=== PATIENT | male | born 1945 | race Caucasian/White ===

== ENCOUNTER 2018-11-21 15:12 | Observation (INO) | payer MEDICARE, OTHER, SELFPAY ==
[2018-11-16 07:56] VITALS: BMI 33.1
[2018-11-20] VITALS (7 sets, daily range): BP systolic 95–138; BP diastolic 50–81; PULSE 74–87; RESP 10–20; TEMP 36.7–37.2; O2SAT 3–96; BMI 33.1
[2018-11-20] MEDS: LACTATED RINGERS 1,000 ML 42 ML IV ×2 (12:29→17:16)
[2018-11-20] MEDS: ACETAMINOPHEN 325 MG TABLET 975 MG PO ×2 (12:31→19:58)
[2018-11-20] MEDS: MELOXICAM 7.5 MG TABLET 15 MG PO (12:32)
[2018-11-20] MEDS: PREGABALIN 75 MG CAPSULE PO (12:32)
--- NOTE | 2018-11-20 13:15 | PM.PREOP ---
Pre-operative Note Interval Note History & Physical reviewed/Exam performed by Physician: Yes Changes to H&P: No
--- NOTE | 2018-11-20 13:15 | PM.OP.1 ---
Operative Date/Time/Diagnoses Date of procedure: 11/20/18 Time of procedure: 17:40 Pre-op diagnosis: Left knee osteoarthritis Post-op diagnosis: same Procedure & Clinicians Procedure: Left total knee replacement Same procedure as scheduled: Yes Indications: The patient has had progressively worsening left knee pain with radiographic changes consistent with arthritis. Non-operative management has failed and the patient has requested total knee replacement. The risks, benefits and alternatives to surgery were discussed with the patient prior to proceeding. Risks discussed included, but were not limited to, failure to relieve pain, stiffness, infection, nerve damage, deep venous thrombosis, pulmonary embolism, stroke, coma, heart attack, permanent paralysis and , as well as the potential need for eventual revision of the prosthetic. Surgeon: David Mistry [employer]astics Tooling Engineer: Janneth Scott Click Yes if Unassisted: No Anesthesia Type: General, Spinal and Local Operative Notes Findings: Moderate osteoarthritis in all 3 compartments with no grade 4 changes. Closure Type: primary Specimen(s): none sent Prosthetic devices, grafts, tissues, transplants, or devices: Implants used in this procedure were manufactured by the [employer] and [employer] and included the BCS II Journey total knee replacement with a size 8 Oxinium femoral component, a size 7 non porous tibial base plate, a 9 mm cross-linked polyethylene tibial insert, and a 35 mm oval Anupama II patellar component. Applied: implant(s) Estimated Blood Loss (mL): 50 Blood products transfused: none Tourniquet time (min): 53 Procedure in detail: The patient was seen in the pre-operative area, where the left knee was identified as the operative site and this was marked with my initials. The patient received pre-operative antibiotics, and was taken to the operating room and placed on the operative table in the supine position. After satisfactory anesthesia, a time study technologist out? was performed. The left leg was encircled with a tourniquet about the proximal thigh, and the leg was prepared from the toes to the tourniquet with ChloroPrep in the usual fashion and draped through sterile drapes. The leg was elevated and exsanguinated with Eschmark bandage and the tourniquet inflated to 250 mmHg pressure. The knee was approached through an approximately 18 cm incision centered over the patella and carried into the knee through a medial parapatellar arthrotomy. The anterior osteophytes and soft tissues were removed. The rotational landmarks of [place]'s line and the transepicondylar axis were marked on the femur with electrocautery, and intramedullary guide holes for the femur and tibia were created. The distal femoral cut was made in 6 degrees of valgus using the intramedullary guide at the primary cut setting. The proximal tibial cut was then made using the intramedullary guide, taking 9 mm of bone off the less involved side. The extension gap was checked and the rotation of the femoral component confirmed with the gap balancing blocks. The anterior, posterior and chamfer cuts were then made. The posterior osteophytes and soft tissues were then removed. The posterior capsule was injected with part of a mixture of 60 ml 0.25% Marcaine mixed with 20 ml Exparel and 4 mg of morphine for post-operative pain control. The remainder of this mixture was injected into the capsule and subcutaneous tissues during cement curing. The tibia was prepared with the rotation set by an extra medullary guide. Trial tibial and femoral components were then placed and the intercondylar notch cut through the femoral trial. Range of motion was 0-140 degrees, with good stability throughout the range. The patella was then cut to accommodate the patellar prosthetic. There was no need for a lateral release. The trials were then removed, and the femoral hole plugged with a bone plug. The bone was prepared with pulsatile lavage, and dried with a sponge. Cement was applied and the final prosthetics placed. Excess cement was removed during and after cement curing. After confirming there was no extruded cement posteriorly, the final tibial insert was placed. The knee was copiously irrigated and the tourniquet deflated. Hemostasis was obtained. The capsule was closed with interrupted # 2 polyester sutures. The subcutaneous layer was closed with 3-0 Vicryl, and the skin with a running 3-0 V-Lock suture and SteriStrips. An Aquacel Ag dressing was applied and the patient was taken to recovery having tolerated the procedure well. Complications: none Condition: stable Disposition: PACU Plan for aftercare: The patient will be maintained on a standard total knee replacement protocol with weight bearing as tolerated. The patient will receive aspirin and sequential compression devices for DVT prophylaxis. The patient will be discharged home when safe for the home environment.
--- NOTE | 2018-11-20 14:00 | DI.RAD.S_ITS ---
PROCEDURE: XR KNEE LT 1TO2V INDICATIONS: prosthesis placement TECHNIQUE: 2 view(s) of the knee acquired. COMPARISON: None. FINDINGS: Bones: Patient is status post left total knee joint arthroplasty. Hardware components are in expected positions. Visualized bony structures are intact. Soft tissues: Overlying postoperative changes are noted. IMPRESSION: Status post left total knee arthroplasty in anatomic alignment with expected postoperative soft tissue changes. Dictated by: Morris Toledo M.D. on 11/21/2018 at 10:52 Approved by: Morris Toledo M.D. on 11/21/2018 at 10:53
[2018-11-20] MEDS: CEFAZOLIN 2 GM/100 ML FROZ.PIGGY IV (16:11)
[2018-11-20] MEDS: TRANEXAMIC ACID 1,000 MG VIAL 1000 MG INJ (16:35)
--- NOTE | 2018-11-20 16:51 | SUR.OPER ---
Supine on padded OR bed. Pillow under head, arms secured on padded armboards <90 degree abduction. Safety belt across torso. Non-operative leg secured with tape over blanket over lower leg. Operative leg secured in DeMayo positioner.
[2018-11-20] MEDS: BUPIVACAINE 0.25% W/ EPI VIAL 60 ML INJ (16:58)
[2018-11-20] MEDS: BUPIVACAINE LIPOSOME 266 MG/20 ML VIAL INJ (16:59)
[2018-11-20] MEDS: MORPHINE 4 MG/ML INJ INJ (16:59)
[2018-11-20] MEDS: LACTATED RINGERS 1,000 ML 125 ML IV (19:51)
[2018-11-20] MEDS: OXYCODONE IR 5 MG TABLET PO (19:51)
[2018-11-20] MEDS: DOCUSATE 100 MG CAPSULE PO (19:59)
--- NOTE | 2018-11-20 22:08 | PC.NURSE ---
Ngoc shift note: Patient arrived to AC from PACU, awake, alert, and cooperative. Tolerating PO intake. Aquacel and Acewrap to Left knee, elevated with ice pack in place. IVF initiated. Kacy at bedside providing supportive care. RT to set up Cpap as per home care routine. Oriented to room, environment and plan of care.
[2018-11-20] MEDS: ONDANSETRON 4 MG/2 ML INJ IV (22:34)
[2018-11-21 00:15] VITALS: BP 124/67; PULSE 77; RESP 19; TEMP 36.9; O2SAT 95
[2018-11-21] MEDS: CEFAZOLIN 2 GM/100 ML FROZ.PIGGY IV ×2 (00:16→07:31)
[2018-11-21] MEDS: OXYCODONE IR 5 MG TABLET PO ×3 (00:20→21:32)
--- NOTE | 2018-11-21 01:51 | PC.NURSE ---
Addendum entered by Melisa Hurtado R.N. 11/21/18 06:21: Requesting additional pain medication for 6/10 left knee pain; too early for additional Oxycodone so reviewed pain med options and requested/medicated early with scheduled Tylenol. Original Note: Addendum entered by Melisa Hurtado R.N. 11/21/18 05:22: Medicated at 0413 for 4/10 left knee pain and states pain is better at 1/10 at rest and 4/10 with movement. Declined offer of anything additional for pain at this time. Original Note: Addendum entered by Melisa Hurtado R.N. 11/21/18 01:54: 0102 Patient voided 750cc dark wood urine via urinal. Original Note: 0027 Patient seen and assessed. Is alert and oriented. Breath sounds diminished but CTA. Wearing home CPAP and sat is 96% HRR. Denies nausea. BT present and abdomen is soft; passing flatus. Has not voided since return from surgery so discussed procedure should he not be able to void; verbalizes understanding. Is able to move himself in bed. Complains of left hip pain so medicated with Oxycodone. David dressing to left knee is CDI. CMS is intact and able to raise leg couple inches off bed. Has not yet been out of bed since surgery. Wearing calf SCD's. Reports fall in past 3 month so fall risk score is high and bed alarm is activated. rooming in.
[2018-11-21 04:12] VITALS: BP 100/58; PULSE 78; RESP 18; TEMP 36.9; O2SAT 96
[2018-11-21] MEDS: ACETAMINOPHEN 325 MG TABLET 975 MG PO ×3 (06:18→21:26)
--- NOTE | 2018-11-21 07:38 | P.DS_ITS ---
History of Present Illness Date Patient Seen: 11/21/18 Time Patient Seen: 07:36 Chief complaint: Left Total Knee Arthroplasty 15010 Narrative: The history of present illness and physical examination is contained in the chart previously completed note. Please refer to that note for this inf ormation. Discharge Providers Date of admission: 11/20/18 11:27 Consults: 11/20/18 18:58 Consult to Discharge Planning Routine Comment: Consult to Physical Therapy Evaluate & Treat Comment: Physician Instructions: postop TKA protocol Discharge provider: David Mistry MD Discharge Date: 11/21/18 Summary Discharge Diagnosis: 1. Left knee osteoarthritis 2. Mild acute post hemorrhagic anemia Hospital Course: The patient was admitted the hospital and taken directly to the operating room on November 20, 2018. He underwent a left total knee replacement without complications. At the time of this dictation the plan is for him to be discharged home provided he passes physical therapy today. Status at Discharge Cognitive/behavioral status at discharge: Baseline Functional status at discharge: uses cane/walker Overall status at discharge: patient is progressing back to baseline Time Spent with Patient Less than 30 minutes Exam Vital Signs (past 8 hours): - 11/21/18 00:15 11/21/18 04:12 Temperature 98.4 F 98.4 F Pulse Rate 77 78 Respiratory Rate 19 18 Blood Pressure 124/67 100/58 L Pulse Oximetry 95 96 Oxygen Delivery Method CPAP Narrative Exam Narrative: Left knee wound is dressed with minimal drainage on the bandage. The knee is mildly swollen. Calf is soft. Light touch and motion are intact in the left lower extremity. Objective Labs Result Diagrams: 11/21/18 06:05 Labs: Laboratory Results - last 24 hr 11/21/18 06:05 Hgb 13.0 L Hct 39.0 L Discharge Plan Discharge Plan Patient Disposition: Home Discharge Med Rec/Prescriptions Prescriptions: New ibuprofen 600 mg Tablet 600 mg PO Q6HR PRN (Reason: As Needed For Fever/Mild Pain) Qty: 60 RF: 0 oxycodone 5 mg Tablet 5 mg PO Q3HR PRN (Reason: Pain, Moderate (4-6)) Qty: 60 RF: 0 Continued aspirin 325 mg Tablet 325 mg PO DAILY RF: 0 Follow up/Referrals: David Mistry MD [Physician] - 3-5 Days Provider Discharge Instructions Diet: Diet as Tolerated and Regular Activity: You may weight bear as tolerated on her left leg. Cold/Heat Therapy: Apply ice to the left knee for 15 min of every hour as needed. Skin/Wound/Dressing Care Report to your healthcare provider any signs of infection, such as:: chills, fever, night sweats, increased pain, unusual drainage and unusual redness Dressing: Keep the compressive David wrap in place for 3 days after surgery. You may then remove the David wrap and shower normally with the deeper dressing in place. If the center strip of the deeper dressing gets saturated with either water or blood please call the office to have it changed. Visit Report/Discharge Packet Instructions: DI for Knee Replacement Stand Alone Forms: Surgery Discharge Discharge Data Attending Provider: David Mistry Admit Date/Time: 11/20/18 11:27 Quality VTE Deep Vein Thrombosis/Pulmonary Embolism Present on Admission: No
[2018-11-21 08:24] VITALS: BP 113/65; PULSE 76; RESP 16; TEMP 36.9; O2SAT 96
[2018-11-21] MEDS: IBUPROFEN 600 MG TABLET PO (08:43)
[2018-11-21] MEDS: SODIUM CHLORIDE 0.9% FLUSH 10 ML IV ×2 (08:44→21:27)
[2018-11-21] MEDS: POLYETHYLENE GLYCOL 3350 17 GM POWD.PACK PO (08:44)
[2018-11-21] MEDS: DOCUSATE 100 MG CAPSULE PO ×2 (08:44→21:26)
[2018-11-21] MEDS: ASPIRIN 325 MG TABLET PO (08:44)
[2018-11-21] MEDS: OXYCODONE IR 10 MG TABLET PO ×2 (08:48→12:58)
--- NOTE | 2018-11-21 09:30 | PT.IIE ---
Current Diagnoses Unilateral primary osteoarthritis, left knee (11/20/18) Surgery Performed Operation Date: 11/20/18 14:00 Actual Procedures p Total Knee Arthroplasty(Left) - David Mistry MD Surgical History (Last Updated 11/16/18 @ 10:10 by Julianne Brush, RN) History of lumbar spinal fusion (Acute) History of vasectomy (Acute) Hx of arthroscopy of right knee (Acute) Hx of laminectomy (Acute 12/02/17) Hx of tonsillectomy (Acute) Hx of umbilical hernia repair (Acute) S/P epidural steroid injection (Acute) Status post cataract extraction of both eyes with insertion of intraocular lens (Acute) Medical History (Last Updated 11/16/18 @ 10:10 by Julianne Brush, JULIANNA) Afib (Acute ~2010) Arthritis (Acute) Easy bruisability (Acute) Neuropathy (Acute) NIKKO on CPAP (Acute) Throat cancer (Acute ~08/2014) Physical Therapy Inpatient Evaluation/Re-Eval M1 PT/OT-IP Prior Functional Status Start: 11/21/18 11:38 Freq: NEEDED Status: Active Protocol: Document 11/21/18 11:39 [facility] (Rec: 11/21/18 11:43 [facility] [id number]) Medical Review Prior Functional Status Medical History Reviewed Yes Diet/Fluid Consistency Regular Communication WNL Mobility and Gait Pt amb without AD. Pt is retired. Indep with ADLs Social History Household Members spouse Living Arrangements House Number of Floors (Floors) One Floor Number of Stairs To Enter/Railing? 1 GUME Home Environment Standard Height Toilet Tub/Shower Home Equipment Front Wheel Walker Straight Cane Employment Status Retired Additional Social History Comment is looking into tub transfer bench after edu M2 PT-IP Current Condition Start: 11/21/18 11:38 Freq: NEEDED Status: Active Protocol: Document 11/21/18 11:39 [facility] (Rec: 11/21/18 11:43 [facility] [id number]) Physical Therapy Current Condition Current Condition Evaluation Date 11/21/18 Treatment Diagnosis L TKA Onset Date 11/20/18 Weight Bearing Status Weight Bearing Status Weight Bear as Tolerated M3 PT-IP Subjective Start: 11/21/18 11:38 Freq: NEEDED Status: Active Protocol: Document 11/21/18 11:39 [facility] (Rec: 11/21/18 11:43 [facility] [email or web address]) Subjective Physical Therapy Visit Type Type Initial Evaluation Visit Start Time 08:45 Visit Stop Time 09:30 Total Visit Minutes 45 Number of FARM MANAGEMENT ADVISER Visits 0 Physical Therapy Visit Comments Patient Comments Pt plans to go home later today w/ Therapy Pain Assessment Pain When Pain Assessed During Mobility Pain Present Pain Present Pain Reported M4 PT-IP Mobility and Gait Start: 11/21/18 11:38 Freq: NEEDED Status: Active Protocol: Document 11/21/18 11:39 [facility] (Rec: 11/21/18 11:43 [facility] [id number]) PT-Bed Mobility Assessment Supine to Sit Supine to Sit Standby Assistance Sit to Supine Sit to Supine Standby Assistance Scooting Scooting to Edge of Bed Standby Assistance Scooting Up and Down in Bed Standby Assistance PT-Transfer Assessment Sit to and From Stand Sit to and from Stand Contact Guard Assistance Use of Upper Extremities Equipment Transfer Assistive Device Gait Belt Front Wheeled Walker Orthotic/Prosthetic Devices or Brace: No Comments Mobility Comments Pt stood to pull up pants but reports inc lightheaded feeling after standing. BP 104 /54 and pt sat to drink water. BP 65/45 so returned to supien and BP inc to 97/60 then to 117/66. RN informed PT-Balance Assessment Sitting Balance and Reactions Static Sitting Balance Ability Normal Dynamic Sitting Balance Ability Normal Standing Balance and Reactions Static Standing Balance Ability Poor Dynamic Standing Balance Ability Poor M5 PT-IP Objective Assessments Start: 11/21/18 11:38 Freq: NEEDED Status: Active Protocol: Document 11/21/18 11:39 [facility] (Rec: 11/21/18 11:43 [facility] [id number]) Orientation Orientation/Cognition Level of Alertness Alert Gross Range of Motion Lower Extremity ROM Assessment Left Impaired Impairments about 95 deg L flex Strength Lower Extremity Strength Assessment Left Impaired M6 PT-IP Treatment Start: 11/21/18 11:38 Freq: NEEDED Status: Active Protocol: Document 11/21/18 11:39 [facility] (Rec: 11/21/18 11:43 [facility] [id number]) Physical Therapy Treatment Education Education Provided Precautions Weight Bearing Status Post-Op Packet Safety Other Treatments Other Treatment Performed edu on possible need for tub transfer bench. edu on getting in/out of car M7 PT-IP Assessment and Plan Start: 11/21/18 11:38 Freq: NEEDED Status: Active Protocol: Document 11/21/18 11:39 [facility] (Rec: 11/21/18 11:43 [facility] [id number]) PT Summary Assessment and Plan Potential Rehabilitation Potential Excellent Status of Condition at Evaluation Unstable Summary Impairments Pain ROM Strength Balance Transfers Gait Assessment Summary Pt was limited this AM d/t dec BP with sitting up and standing. He is very motivated to progress and agreeable to work with therapy. Goals Bed Mobility Goal Independent Transfer Goal Independent Gait Goal Standby Assistance Gait Distance 150ft Other Goals up/down 1 step SBA w/FWW Days to Meet Goals 2 Frequency of Treatment Frequency Of Treatment Twice a Day Treatment Plan Physical Therapy Treatment Plan Bed Mobility Training Transfer Training Gait Training Therapeutic Exercise Balance Retraining Hot or Cold Pack Neuromuscular Re-ed Recommendations To Nursing Amount of Assist Needed 1 Person Assist Discharge Recommendations PT Discharge Recommendations Home with Assistance Outpatient PT
--- NOTE | 2018-11-21 11:39 | CM.DANOTE ---
DCP: Case received, EMR reviewed and met with patient. Introduced self and role. DCP template completed with information currently available. Patient is a 73 year old male who admitted yesterday morning to the care of the surgical team. PCP: Hari Lorenz. Payer: confirmed: Medicare/[employer]. Patient came to hospital for Left Total Knee Arthroplasty. Patient has history of left knee osteoarthritis. Met briefly with patient, spouse in room as well. Patient is independent at home. Him and his Charmaine, live on [address]. He has also been driving prior to surgery. P: Patient should be discharging home today with outpatient physical therapy. Rebecca Dyer RN/Spar Finisher
--- NOTE | 2018-11-21 12:30 | PC.NURSE ---
Day shift: Pt tolerating knee pain with oral meds per DEC. Pt hypotensive and light headed when OOB and ambulating. He worked w/ PT on the stairs and became dizzy and incoherent. Safely returned to bed. Called Dr Mistry and gave report of the accounts so far. Order to d/c the discharge today. Did not want IV bolus and said to encourage oral fluids. Will continue to monitor.
--- NOTE | 2018-11-21 14:19 | PT.IPTN ---
Current Diagnoses Unilateral primary osteoarthritis, left knee (11/20/18) Surgery Performed Operation Date: 11/20/18 14:00 Actual Procedures p Total Knee Arthroplasty(Left) - David Mistry MD Physical Therapy Treatment Note M2 PT-IP Current Condition Start: 11/21/18 11:38 Freq: NEEDED Status: Active Protocol: Document 11/21/18 11:39 [facility] (Rec: 11/21/18 11:43 [facility] [id number]) Physical Therapy Current Condition Current Condition Evaluation Date 11/21/18 Treatment Diagnosis L TKA Onset Date 11/20/18 Weight Bearing Status Weight Bearing Status Weight Bear as Tolerated M3 PT-IP Subjective Start: 11/21/18 11:38 Freq: NEEDED Status: Active Protocol: Document 11/21/18 14:13 [facility] (Rec: 11/21/18 14:19 [facility] [id number]) Subjective Physical Therapy Visit Type Type Treatment Note Visit Start Time 11:55 Visit Stop Time 12:33 Total Visit Minutes 38 Number of CUFF TURNER MACHINE OPERATOR Visits 0 Physical Therapy Visit Comments Patient Comments Pt excited to try mobilizing to be able to possibly go home tomorrow. Therapy Pain Assessment Pain When Pain Assessed During Mobility Pain Present Pain Present Pain Reported M4 PT-IP Mobility and Gait Start: 11/21/18 11:38 Freq: NEEDED Status: Active Protocol: Document 11/21/18 14:13 [facility] (Rec: 11/21/18 14:19 [facility] [id number]) PT-Bed Mobility Assessment Supine to Sit Supine to Sit Standby Assistance Sit to Supine Sit to Supine Minimal Assistance Scooting Scooting Up and Down in Bed Standby Assistance PT-Transfer Assessment Sit to and From Stand Sit to and from Stand Standby Assistance Use of Upper Extremities Equipment Transfer Assistive Device Gait Belt Orthotic/Prosthetic Devices or Brace: No Transfers Transfer Destination Bed Transfer Technique Stand Step Pivot Transfer Ability Level of Assist Moderate Assistance Comments Mobility Comments Pt stood from bed SBA and was able to amb to stairs and go up/down a step with good mechanics and no c/o of lightheadedness. After completing the step, pt c/o feeling lightheaded and was assisted into w/c and required assistance to transfer back to bed. Supine BP 114/58; seated 107/62, standing 106/62 no c/o of dizziness; supine after amb 104/63 and improved to 115/70 after about 2 min in bed Gait Assessment Gait Gait Assistance Required: Standby Assistance Distance (Feet) 120 Able to Maintain Weight Bearing Status Yes During Gait Assistive Devices Assistive Device Gait Belt Front Wheeled Walker Orthotic/Prosthetic Devices or Brace: No Gait Deviations General Gait Pattern Antalgic Decreased Stride Length Factors Limiting Gait Function Factors Limiting Gait Function Decreased Strength Limited Range of Motion Pain Comments Gait Comments Pt able to ambulate iwth step through pattern, but very small steps. Stair Climbing Assessment Evaluation Level of Assist On Stairs Contact Guard Assistance Devices Stair Climbing Assistive Devices Front Wheel Walker Technique/Endurance Stair Climbing Direction Ascend and Descend Stair Climbing Technique Step to Step Number of Steps Climbed 1 Query Text: M5 PT-IP Objective Assessments Start: 11/21/18 11:38 Freq: NEEDED Status: Active Protocol: Document 11/21/18 11:39 [facility] (Rec: 11/21/18 11:43 [facility] [id number]) Orientation Orientation/Cognition Level of Alertness Alert Gross Range of Motion Lower Extremity ROM Assessment Left Impaired Impairments about 95 deg L flex Strength Lower Extremity Strength Assessment Left Impaired M6 PT-IP Treatment Start: 11/21/18 11:38 Freq: NEEDED Status: Active Protocol: Document 11/21/18 11:39 [facility] (Rec: 11/21/18 11:43 [facility] [id number]) Physical Therapy Treatment Education Education Provided Precautions Weight Bearing Status Post-Op Packet Safety Other Treatments Other Treatment Performed edu on possible need for tub transfer bench. edu on getting in/out of car M7 PT-IP Assessment and Plan Start: 11/21/18 11:38 Freq: NEEDED Status: Active Protocol: Document 11/21/18 14:13 [facility] (Rec: 11/21/18 14:19 [facility] [id number]) PT Summary Assessment and Plan Summary Progress Towards Goals Progressing Toward Goals Assessment Summary Pt able to tolerate amb and was able ot go up/down a step with cueing and stabilizing the FWW but felt dizzy after activity. At this time, pt needs to get more medically stable before returning home. Goals Bed Mobility Goal Independent Transfer Goal Independent Gait Goal Standby Assistance Gait Distance 150ft Other Goals up/down 1 step SBA w/FWW Days to Meet Goals 2 Frequency of Treatment Frequency Of Treatment Twice a Day Treatment Plan Physical Therapy Treatment Plan Bed Mobility Training Transfer Training Gait Training Therapeutic Exercise Balance Retraining Hot or Cold Pack Neuromuscular Re-ed Other Recommendations and Next Treatment orthostatics, gait & stair Focus Recommendations To Nursing Amount of Assist Needed 1 Person Assist Discharge Recommendations PT Discharge Recommendations Home with Assistance Outpatient PT Equipment Needed for Home Before is ordering tub transfer Discharge bench and plans to pear picker FWW from [employer] as she found out his walker was a 4ww
[2018-11-21 17:08] VITALS: BP 119/69; PULSE 71; RESP 18; TEMP 36.7; O2SAT 96
[2018-11-21 19:43] VITALS: BP 139/70; PULSE 76; RESP 19; TEMP 36.7; O2SAT 95
[2018-11-22 01:00] VITALS: BP 119/61; PULSE 74; RESP 18; TEMP 37; O2SAT 94
[2018-11-22] MEDS: OXYCODONE IR 5 MG TABLET PO ×2 (01:02→02:19)
[2018-11-22] MEDS: IBUPROFEN 600 MG TABLET PO (02:18)
[2018-11-22 05:18] VITALS: BP 130/69; PULSE 74; RESP 17; TEMP 36.8; O2SAT 94
--- NOTE | 2018-11-22 05:49 | PC.NURSE ---
CENTRIFUGE SEPARATOR OPERATOR: Assumed care of this patient at 0300 this shift. Patient sleeping appearing comfortable most of shift. 0515 patient awake asking for coffee. Reports pain tolerable at this time and declines pain medications. No acute distress, patient looking forward to discharging home today.
[2018-11-22] MEDS: OXYCODONE IR 10 MG TABLET PO (06:51)
--- NOTE | 2018-11-22 07:06 | PM.DS.1 ---
History of Present Illness Chief complaint: Left Total Knee Arthroplasty [id number] Narrative: The history of present illness and physical examination is contained in the chart previously completed note. Please refer to that note for this information. Discharge Providers Date of admission: 11/20/18 11:27 Consults: 11/20/18 18:58 Consult to Discharge Planning Routine Comment: Consult to Physical Therapy Evaluate & Treat Comment: Physician Instructions: postop TKA protocol Discharge provider: David Mistry MD Discharge Date: 11/22/18 Summary Discharge Diagnosis: 1. Left knee osteoarthritis 2. Mild acute post hemorrhagic anemia Hospital Course: The patient was admitted to the hospital and taken directly to the operating room on November 20, 2018. He underwent a left total knee replacement which he tolerated well. He made excellent progress with physical therapy however had an episode of orthostatic hypotension with stair climbing on postoperative day 1 and his discharge was canceled. At the time of this dictation on postoperative day 2 it is anticipated he will be ready to go home. Status at Discharge Cognitive/behavioral status at discharge: Baseline Functional status at discharge: uses cane/walker Overall status at discharge: patient is progressing back to baseline Time Spent with Patient Less than 30 minutes Exam Vital Signs (past 8 hours): - 11/22/18 01:00 11/22/18 05:18 Temperature 98.6 F 98.2 F Pulse Rate 74 74 Respiratory Rate 18 17 Blood Pressure 119/61 130/69 Pulse Oximetry 94 94 Oxygen Delivery Method Room Air Oxygen Flow Rate 0 Objective Labs Result Diagrams: 11/21/18 06:05 Discharge Plan Discharge Plan Patient Disposition: Home Discharge Med Rec/Prescriptions Prescriptions: New ibuprofen 600 mg Tablet 600 mg PO Q6HR PRN (Reason: As Needed For Fever/Mild Pain) Qty: 60 RF: 0 oxycodone 5 mg Tablet 5 mg PO Q3HR PRN (Reason: Pain, Moderate (4-6)) Qty: 60 RF: 0 Continued aspirin 325 mg Tablet 325 mg PO DAILY RF: 0 Follow up/Referrals: David Mistry MD [Physician] - 3-5 Days Provider Discharge Instructions Diet: Diet as Tolerated and Regular Activity: You may weight bear as tolerated on her left leg. Cold/Heat Therapy: Apply ice to the left knee for 15 min of every hour as needed. Skin/Wound/Dressing Care Report to your healthcare provider any signs of infection, such as:: chills, fever, night sweats, increased pain, unusual drainage and unusual redness Dressing: Keep the compressive David wrap in place for 3 days after surgery. You may then remove the David wrap and shower normally with the deeper dressing in place. If the center strip of the deeper dressing gets saturated with either water or blood please call the office to have it changed. Visit Report/Discharge Packet Instructions: DI for Knee Replacement Stand Alone Forms: Surgery Discharge Discharge Data Attending Provider: David Mistry Admit Date/Time: 11/20/18 11:27 Quality VTE Deep Vein Thrombosis/Pulmonary Embolism Present on Admission: No
--- NOTE | 2018-11-22 07:09 | P.DS_ITS ---
History of Present Illness Chief complaint: Left Total Knee Arthroplasty [id number] Narrative: The history of present illness and physical examination is contained in the chart previously completed note. Please refer to that note for this info rmation. Discharge Providers Date of admission: 11/20/18 11:27 Consults: 11/20/18 18:58 Consult to Discharge Planning Routine Comment: Consult to Physical Therapy Evaluate & Treat Comment: Physician Instructions: postop TKA protocol Discharge provider: David Mistry MD Discharge Date: 11/22/18 Summary Discharge Diagnosis: 1. Left knee osteoarthritis 2. Mild acute post hemorrhagic anemia Hospital Course: The patient was admitted to the hospital and taken directly to the operating room on November 20, 2018. He underwent a left total knee replace ment which he tolerated well. He made excellent progress with physical therapy however had an episode of orthostatic hypotension with stair climbing on postoperative day 1 and his discharge was canceled. At the time of this dictation on postoperative day 2 it is anticipated he will be ready to go home. Status at Discharge Cognitive/behavioral status at discharge: Baseline Functional status at discharge: uses cane/walker Overall status at discharge: patient is progressing back to baseline Time Spent with Patient Less than 30 minutes Exam Vital Signs (past 8 hours): - 11/22/18 01:00 11/22/18 05:18 Temperature 98.6 F 98.2 F Pulse Rate 74 74 Respiratory Rate 18 17 Blood Pressure 119/61 130/69 Pulse Oximetry 94 94 Oxygen Delivery Method Room Air Oxygen Flow Rate 0 Objective Labs Result Diagrams: 11/21/18 06:05 Discharge Plan Discharge Plan Patient Disposition: Home Discharge Med Rec/Prescriptions Prescriptions: New ibuprofen 600 mg Tablet 600 mg PO Q6HR PRN (Reason: As Needed For Fever/Mild Pain) Qty: 60 RF: 0 oxycodone 5 mg Tablet 5 mg PO Q3HR PRN (Reason: Pain, Moderate (4-6)) Qty: 60 RF: 0 Continued aspirin 325 mg Tablet 325 mg PO DAILY RF: 0 Follow up/Referrals: David Mistry MD [Physician] - 3-5 Days Provider Discharge Instructions Diet: Diet as Tolerated and Regular Activity: You may weight bear as tolerated on her left leg. Cold/Heat Therapy: Apply ice to the left knee for 15 min of every hour as needed. Skin/Wound/Dressing Care Report to your healthcare provider any signs of infection, such as:: chills, fever, night sweats, increased pain, unusual drainage and unusual redness Dressing: Keep the compressive David wrap in place for 3 days after surgery. You may then remove the David wrap and shower normally with the deeper dressing in place. If the center strip of the deeper dressing gets saturated with either water or blood please call the office to have it changed. Visit Report/Discharge Packet Instructions: DI for Knee Replacement Stand Alone Forms: Surgery Discharge Discharge Data Attending Provider: David Mistry Admit Date/Time: 11/20/18 11:27 Quality VTE Deep Vein Thrombosis/Pulmonary Embolism Present on Admission: No
[2018-11-22 08:06] VITALS: BP 140/77; PULSE 75; RESP 18; TEMP 36.7
[2018-11-22] MEDS: ACETAMINOPHEN 325 MG TABLET 975 MG PO (08:40)
[2018-11-22] MEDS: ASPIRIN 325 MG TABLET PO (08:41)
[2018-11-22] MEDS: DOCUSATE 100 MG CAPSULE PO (08:41)
--- NOTE | 2018-11-22 11:49 | PT.IPTN ---
Current Diagnoses Unilateral primary osteoarthritis, left knee (11/20/18) Surgery Performed Operation Date: 11/20/18 14:00 Actual Procedures p Total Knee Arthroplasty(Left) - David Mistry MD Physical Therapy Treatment Note M2 PT-IP Current Condition Start: 11/21/18 11:38 Freq: NEEDED Status: Active Protocol: Document 11/21/18 11:39 [facility] (Rec: 11/21/18 11:43 [email or web address] [id number]) Physical Therapy Current Condition Current Condition Evaluation Date 11/21/18 Treatment Diagnosis L TKA Onset Date 11/20/18 Weight Bearing Status Weight Bearing Status Weight Bear as Tolerated M3 PT-IP Subjective Start: 11/21/18 11:38 Freq: NEEDED Status: Active Protocol: Document 11/22/18 11:41 SA (Rec: 11/22/18 11:49 SA [id number]) Subjective Physical Therapy Visit Type Type Treatment Note Visit Start Time 09:24 Visit Stop Time 09:48 Total Visit Minutes 24 Number of STONE SANDBLASTER Visits 1 Physical Therapy Visit Comments Patient Comments Pt ready to walk this AM. Patient Goals To get home with . Therapy Pain Assessment Pain When Pain Assessed During Mobility Pain Present Pain Present Pain Reported Location Left Knee Intensity 3 Scale Used Numeric (1 - 10) Pain Management Techniques Apply Cold Modification of Treatment Re-positioning Timing of Activity with Medications M4 PT-IP Mobility and Gait Start: 11/21/18 11:38 Freq: NEEDED Status: Active Protocol: Document 11/22/18 11:41 SA (Rec: 11/22/18 11:49 SA [id number]) PT-Bed Mobility Assessment Rolling Type of Rolling Roll to Right Level of Assist Standby Assistance Supine to Sit Supine to Sit Standby Assistance Sit to Supine Sit to Supine Contact Guard Assistance Scooting Scooting to Edge of Bed Standby Assistance Scooting Up and Down in Bed Standby Assistance PT-Transfer Assessment Sit to and From Stand Sit to and from Stand Standby Assistance Use of Upper Extremities Equipment Transfer Assistive Device Gait Belt Front Wheeled Walker Orthotic/Prosthetic Devices or Brace: No Transfers Transfer Destination Bed Transfer Technique Stand Step Pivot Transfer Ability Level of Assist Standby Assistance Comments Mobility Comments Pt denied dizziness with mobility, SBA with stand pivot txs. Able to clear LLE over EOB with SUpine<>Sit. Gait Assessment Gait Gait Assistance Required: Standby Assistance Distance (Feet) 150 Able to Maintain Weight Bearing Status Yes During Gait Assistive Devices Assistive Device Gait Belt Front Wheeled Walker Gait Deviations General Gait Pattern Antalgic Decreased Stride Length Factors Limiting Gait Function Factors Limiting Gait Function Decreased Strength Limited Range of Motion Pain Comments Gait Comments Pt with improving WBing on LLE and step through gait, min cues for upright posture. Stair Climbing Assessment Evaluation Level of Assist On Stairs Contact Guard Assistance Devices Stair Climbing Assistive Devices Right Railing Technique/Endurance Stair Climbing Direction Ascend and Descend Stair Climbing Technique Step to Step Number of Steps Climbed 3 Query Text: Stair Climbing Set # Repetitions (reps) 1 Comments Stair Climbing Comments Step to gait pattern on steps and CGA, min cues for safe technique. M5 PT-IP Objective Assessments Start: 11/21/18 11:38 Freq: NEEDED Status: Active Protocol: Document 11/21/18 11:39 LR (Rec: 11/21/18 11:43 [facility] [id number]) Orientation Orientation/Cognition Level of Alertness Alert Gross Range of Motion Lower Extremity ROM Assessment Left Impaired Impairments about 95 deg L flex Strength Lower Extremity Strength Assessment Left Impaired M6 PT-IP Treatment Start: 11/21/18 11:38 Freq: NEEDED Status: Active Protocol: Document 11/22/18 11:41 SA (Rec: 11/22/18 11:49 [id number]) Physical Therapy Treatment Exercises Exercises Ankle Pumps Quad Sets Heel Slides Seated Knee Flexion/Extension Education Education Provided Precautions Weight Bearing Status Post-Op Packet Safety Other Treatments Other Treatment Performed Pt receptive with education and has OP PT set up. M7 PT-IP Assessment and Plan Start: 11/21/18 11:38 Freq: NEEDED Status: Active Protocol: Document 11/22/18 11:41 SA (Rec: 11/22/18 11:49 [id number]) PT Summary Assessment and Plan Summary Progress Towards Goals Progressing Toward Goals Assessment Summary Pt to d/c home today and has OP PT appointment this week. Able to manage stairs safely and has spouse at home to help . Frequency of Treatment Frequency Of Treatment Twice a Day Recommendations To Nursing Amount of Assist Needed 1 Person Assist Discharge Recommendations PT Discharge Recommendations Home with Assistance Outpatient PT Equipment Needed for Home Before is ordering tub transfer Discharge bench and plans to machine operator picker FWW from [employer] as she found out his walker was a 4ww
== END 2018-11-22 12:00 | disposition home or self-care (01) ==
LOC: AC 16:44 → OR 11-22 14:49 → AC 11-22 14:53 → OR 11-22 14:53
PROVIDERS: Admitting Provider Orthopaedic Surgery; Visit Provider Orthopaedic Surgery
PROC: 0SRD0JZ Replacement of Left Knee Joint with Synthetic Substitute, Open Approach (ICD-10-PCS; CPT 27447; principal; 2018-11-20 14:00)
DX: M17.12 Unilateral primary osteoarthritis, left knee (principal); D62 Acute posthemorrhagic anemia; I48.91 Unspecified atrial fibrillation; G47.33 Obstructive sleep apnea (adult) (pediatric); Y93.31 Activity, mountain climbing, rock climbing and wall climbing; W01.0XXA Fall on same level from slipping, tripping and stumbling without subsequent striking against object, initial encounter
CPT/HCPCS: 27447; 36415; 73560; 85014; 85018; 97116; 97163; 97530; C1776; G0378; C9290; J0690; J1100; J2250; J2270; J2405; J2704; J3010

== ENCOUNTER → 2020-10-18 11:09 | Outpatient (CLI) | payer MEDICARE, OTHER, SELFPAY ==
[2020-09-26 10:50] VITALS: BMI 33.1
[2020-10-18 12:34] LABS: COVID19 -Nasal RAPID Negative (Negative)
== END ==
PROVIDERS: Visit Provider Nurse Practitioner
DX: Z01.812 Encounter for preprocedural laboratory examination (principal); Z20.822 Contact with and (suspected) exposure to COVID-19
CPT/HCPCS: 87635; C9803

== ENCOUNTER 2020-10-21 14:26 | Observation (INO) | payer MEDICARE, OTHER, SELFPAY ==
[2018-11-20 18:59] VITALS: BMI 33.1
[2020-09-26 10:50] VITALS: BMI 33.1
[2020-10-17 07:36] VITALS: BMI 33.7
[2020-10-20] VITALS (15 sets, daily range): BP systolic 116–167; BP diastolic 50–99; PULSE 74–87; RESP 7–16; TEMP 36.4–37.3; O2SAT 93–98; BMI 33.7
--- NOTE | 2020-10-20 06:00 | DI.RAD.S_ITS ---
PROCEDURE: XR KNEE RT 1TO2V INDICATIONS: post operative right knee TECHNIQUE: 2 view(s) of the knee acquired. COMPARISON: None. FINDINGS: Bones: Patient is status post knee joint arthroplasty. Hardware components are in expected positions. Visualized bony structures are intact. Soft tissues: Overlying postoperative changes are noted. IMPRESSION: Expected postsurgical change for right knee arthroplasty. Dictated by: Shaina Jackson MD, PhD on 10/20/2020 at 17:05 Approved by: Shaina Jackson MD, PhD on 10/20/2020 at 17:06
[2020-10-20] MEDS: ACETAMINOPHEN 325 MG TABLET 975 MG PO (07:19)
[2020-10-20] MEDS: LACTATED RINGERS 1,000 ML 42 ML IV (07:19)
[2020-10-20] MEDS: MELOXICAM 7.5 MG TABLET 15 MG PO (07:20)
[2020-10-20] MEDS: PREGABALIN 75 MG CAPSULE PO (07:20)
--- NOTE | 2020-10-20 07:28 | PM.PREOP ---
Pre-operative Note COVID-19 COVID-19 status: Negative Result date/Date tested (Pos, Neg/Pending): 10/18/20 Interval Note History & Physical reviewed/Exam performed by Physician: Yes Changes to H&P: No
--- NOTE | 2020-10-20 07:29 | P.OP_ITS ---
Operative Date/Time/Diagnoses Date of procedure: 10/20/20 Time of procedure: 09:39 Pre-op diagnosis: Right knee osteoarthritis Post-op diagnosis: same Procedure & Clinicians Procedure: Right total knee replacement Same procedure as scheduled: Yes Indications: The patient has had progressively worsening right knee pain with radiographic changes consistent with arthritis. Non-operative management has failed and the patient has requested total knee replacement. The risks, benefits and alternatives to surgery were discussed with the patient prior to proceeding. Risks discussed included, but were not limited to, failure to relieve pain, stiffness, infection, nerve damage, deep venous thrombosis, pulmonary embolism, stroke, coma, heart attack, permanent paralysis and , as well as the potential need for eventual revision of the prosthetic. Surgeon: David Mistry Domestic Violence Counselor: Corzaon Clements Click Yes if Unassisted: No Anesthesia Type: General, Spinal and Local Operative Notes Findings: Significant patellofemoral and medial compartment osteoarthritis with relative preservation of the lateral compartment. Closure Type: primary Specimen(s): none sent Prosthetic devices, grafts, tissues, transplants, or devices: Implants used in this procedure were manufactured by the [employer] and included the BCS II Journey total knee replacement with a size 8 Oxinium femoral component, a size 7 non porous tibial base plate with a 9 mm cross-linked polyet hylene insert and a 38 mm oval Anupama II patellar component. Applied: implant(s) Estimated Blood Loss (mL): 25 Blood products transfused: none Tourniquet time (min): 56 Procedure in detail: The patient was seen in the pre-operative area, where the patient identified the right knee as the operative site and this was marked with my initials. The patient received pre-operative antibiotics, and was taken to the operating room and placed on the operative table in the supine position. After satisfactory anesthesia, a realtime captioner out was performed. The right leg was encircled with a tourniquet about the proximal thigh, and the leg was prepared from the toes to the tourniquet with ChloroPrep in the usual fashion and draped through sterile drapes. The leg was elevated and exsanguinated with Eschmark bandage and the tourniquet inflated to 250 mmHg pressure. The knee was approached through an approximately 18 cm incision centered over the patella and carried into the knee through a medial parapatellar arthrotomy. The anterior osteophytes and soft tissues were removed. The rotational landmarks of [place]'s line and the transepicondylar axis were marked on the femur with electrocautery, and intramedullary guide holes for the femur and tibia were created. The distal femoral cut was made in 6 degrees of valgus using the intramedullary guide at the +1 mm cut setting. The proximal tibial cut was then made using the intramedullary guide, taking 9 mm of bone off the less involved side. The extension gap was checked and the rotation of the femoral component confirmed with the gap balancing system. The anterior, posterior and chamfer cuts were then made. The guide was moved 1 mm anterior to try to prevent femoral notching as the patient was just slightly larger than a size 8. The posterior osteophytes and soft tissues were then removed. The posterior capsule was injected with part of a mixture of 60 ml 0.25% Marcaine mixed with 20 ml Exparel and 4 mg of morphine for post-operative pain control. The remainder of this mixture was injected into the capsule and subcutaneous tissues during cement curing. The tibia was prepared with the rotation set by an extra medullary guide. Trial tibial and femoral components were then placed and the intercondylar notch cut through the femoral trial. Range of motion was 0-135 degrees, with good stability throughout the range. The patella was then cut to accommodate the patellar prosthetic. There was no need for a lateral release. The trials were then removed, and the femoral hole plugged with a bone plug. The bone was prepared with pulsatile lavage, and dried with a sponge. Cement was applied and the final prosthetics placed. Excess cement was removed during and after cement curing. After confirming there was no extruded cement posteriorly, the final tibial insert was placed. The knee was copiously irrigated and the tourniquet deflated. Hemostasis was obtained. The capsule was closed with interrupted # 2 polyester suture. The subcutaneous layer was closed with 3-0 Vicryl, and the skin with a running 3-0 V-Lock suture and SteriStrips. An Aquacel Ag dressing was applied and the patient was taken to recovery having tolerated the procedure well. Complications: none Post-operative Condition: stable Disposition: PACU Plan for aftercare: The patient will be maintained on a standard total knee replacement protocol with weight bearing as tolerated. The patient will receive aspirin and sequential compression devices for DVT prophylaxis. The patient will be discharged home when safe for the home environment.
[2020-10-20] MEDS: CEFAZOLIN 2 GM/100 ML FROZ.PIGGY IV (08:02)
[2020-10-20] MEDS: TRANEXAMIC ACID 1,000 MG VIAL 2000 MG INJ ×2 (08:03→09:14)
--- NOTE | 2020-10-20 08:23 | SUR.OPER ---
Supine on padded OR bed. Pillow under head, arms secured on padded armboards <90 degree abduction. Safety belt across torso. Non-operative leg secured with tape over blanket over lower leg. Operative leg secured in [place]/Carlos positioner.
[2020-10-20] MEDS: BUPIVACAINE LIPOSOME 266 MG/20 ML VIAL INJ (08:32)
[2020-10-20] MEDS: MORPHINE 4 MG/ML INJ INJ (08:34)
[2020-10-20] MEDS: BUPIVACAINE 0.25% W/ EPI (PF) 10 ML VIAL 60 ML INJ (08:35)
--- NOTE | 2020-10-20 10:33 | PC.NURSE ---
Day shift: Pt on AC unit from PACU at approx 1030. He is A&Ox4. Denies any pain, chest pain or nausea. CMS returning as he has sensation in BLE's and can wiggle his toes. SCD's in place. Oriented to room and call light. Instructed on I.S. use. Ice water at bedside. Agrees to not get OOB w/o help from staff. Pt call and cooperative w/ care.
[2020-10-20] MEDS: LACTATED RINGERS 1,000 ML 100 ML IV ×2 (10:50→20:36)
[2020-10-20] MEDS: ONDANSETRON 4 MG/2 ML INJ IV (12:51)
[2020-10-20] MEDS: diphenhydrAMINE 25 MG TABLET PO (13:05)
[2020-10-20] MEDS: diphenhydrAMINE 25 MG TABLET 50 MG PO (13:59)
[2020-10-20] MEDS: ACETAMINOPHEN 325 MG TABLET 650 MG PO ×2 (13:59→20:36)
--- NOTE | 2020-10-20 14:30 | PT.IIE ---
Current Diagnoses Unilateral primary osteoarthritis, right knee (10/20/20) Surgery Performed Operation Date: 10/20/20 07:45 Actual Procedures p Total Knee Arthroplasty(Right) - David Mistry MD Surgical History (Last Updated 10/09/20 @ 10:27 by Julianne Brush, RN) History of arthroplasty of left knee (11/20/18) History of lumbar spinal fusion History of vasectomy Hx of arthroscopy of right knee Hx of laminectomy (12/02/17) Hx of tonsillectomy Hx of umbilical hernia repair S/P epidural steroid injection Status post cataract extraction of both eyes with insertion of intraocular lens Medical History (Last Updated 10/17/20 @ 07:33 by Julianne Brush RN) Afib (~2010) Arthritis Atrial flutter (~09/20/20) Easy bruisability History of cardioversion (~09/2020) Neuropathy NIKKO on CPAP Throat cancer (~08/2014) Physical Therapy Inpatient Evaluation/Re-Eval M1 PT/OT-IP Prior Functional Status Start: 10/20/20 12:53 Freq: NEEDED Status: Active Protocol: Document 10/20/20 14:30 AW (Rec: 10/20/20 15:37 AW [id number]) Medical Review Prior Functional Status Medical History Reviewed Yes Communication WNL. Pt is an effective verbal communicator. Mobility and Gait Pt is an independent ambulator without meaningful limit in time or distance. Activities of Daily Living and IADL's IND will all I/ADL's Prior Functional Level (Other details) Pt had L TKA in Nov 2018 and rehabbed to his satisfaction. Social History Household Members spouse Living Arrangements House Number of Floors (Floors) One Floor Number of Stairs To Enter/Railing? 2 steps up to the front porch with left rail. Home Environment Standard Height Toilet,Tub/ Shower Home Equipment Front Wheel Walker,Straight Cane,[employer] Employment Status Retired Additional Social History Comment Pt lives with his spouse, Charmaine, who will be available and able to assist at discharge. M2 PT-IP Current Condition Start: 10/20/20 12:53 Freq: NEEDED Status: Active Protocol: Document 10/20/20 14:30 AW (Rec: 10/20/20 15:37 AW [id number]) Physical Therapy Current Condition Current Condition Evaluation Date 10/20/20 Treatment Diagnosis R TKA; difficulty in walking Onset Date 10/20/20 Weight Bearing Status Weight Bearing Status Weight Bear as Tolerated M3 PT-IP Subjective Start: 10/20/20 12:53 Freq: NEEDED Status: Active Protocol: Document 10/20/20 14:30 AW (Rec: 10/20/20 15:37 AW [id number]) Subjective Physical Therapy Visit Type Type Initial Evaluation Visit Start Time 14:00 Visit Stop Time 14:30 Total Visit Minutes 30 Physical Therapy Visit Comments Patient Comments Pt is willing to participate with PT Patient Goals Return home and to normal activities. Therapy Pain Assessment Pain When Pain Assessed During Mobility Pain Present Pain Present Pain Reported Location right knee Intensity 2 Scale Used Numeric (0 - 10) Pain Management Techniques Apply Cold,Timing of Activity with Medications M4 PT-IP Mobility and Gait Start: 10/20/20 12:53 Freq: NEEDED Status: Active Protocol: Document 10/20/20 14:30 AW (Rec: 10/20/20 15:37 AW [id number]) PT-Bed Mobility Assessment Supine to Sit Supine to Sit Contact Guard Assistance,1 Person Assistance Scooting Scooting to Edge of Bed Contact Guard Assistance PT-Transfer Assessment Sit to and From Stand Sit to and from Stand Minimal Assistance,1 Person Assistance,Use of Upper Extremities Equipment Transfer Assistive Device Gait Belt,Front Wheeled Walker Orthotic/Prosthetic Devices or Brace: No Transfers Transfer Destination Chair Transfer Technique Stand Step Pivot Transfer Ability Level of Assist Minimal Assistance,Moderate Assistance,1 Person Assistance ,Use of Upper Extremities Comments Mobility Comments Pt was reclined in bed as PT arrived. BP was 141/77. Pt completed supine to sit and sat EOB, began to complain of lightheadedness. BP was 151/89 HR 75. With cues for right foot placement, pt stood from the bed in lowest position min A x 1 and used the FWW to shift weight laterally. Pt ambulated 10 feet total to the window and back to the chair with FWW min A x 1 but complained of increasing lightheadedness. He sat on the chair and had a small amount of emesis. BP was 149/94 HR 90 . RN was made aware of these events. Pt was positioned on the chair with legs dangling, call light and all needs in reach, fresh ice packs applied to the right knee. Gait Assessment Gait Gait Assistance Required: Minimum Assistance,1 Person Assist Distance (Feet) 10 Able to Maintain Weight Bearing Status Yes During Gait Assistive Devices Assistive Device Gait Belt,Front Wheeled Walker Orthotic/Prosthetic Devices or Brace: No Gait Deviations General Gait Pattern Antalgic,Decreased Stride Length,Decreased Feet Clearance,Flexed Trunk,Step-to Gait Factors Limiting Gait Function Factors Limiting Gait Function Decreased Activity Tolerance, Decreased Strength,Limited Range of Motion,Pain,Poor Balance Comments Gait Comments Pt used his own FWW for gait which was limited due to lightheadedness and nausea. Stair Climbing Assessment Comments Stair Climbing Comments Not assessed due to pt condition. PT-Balance Assessment Sitting Balance and Reactions Static Sitting Balance Ability Good Dynamic Sitting Balance Ability Good Standing Balance and Reactions Static Standing Balance Ability Good Dynamic Standing Balance Ability Fair Device Used FWW M5 PT-IP Objective Assessments Start: 10/20/20 12:53 Freq: NEEDED Status: Active Protocol: Document 10/20/20 14:30 AW (Rec: 10/20/20 15:37 AW [id number]) Orientation Orientation/Cognition Level of Alertness Alert Orientation Name,Day of Week,Place, Situation Language Function Ability No Deficits Noted Safety Awareness Understands Safety Issues Memory Description No Deficits Noted Gross Range of Motion Lower Extremity ROM Assessment Right Impaired Impairments 15-90 degrees right knee AROM Strength Lower Extremity Strength Assessment Right Impaired Coordination Assessment Gross Coordination Gross Coordination WNL Sensation Assessment Sensation Gross Sensation WNL Muscle Tone Muscle Tone WNL Yes M6 PT-IP Treatment Start: 10/20/20 12:53 Freq: NEEDED Status: Active Protocol: Document 10/20/20 14:30 AW (Rec: 10/20/20 15:37 AW [id number]) Physical Therapy Treatment Exercises Exercises Ankle Pumps,Quad Sets,Heel Slides,Passive Knee Extension Hang Education Education Provided Precautions,Weight Bearing Status,Post-Op Packet,Safety M7 PT-IP Assessment and Plan Start: 10/20/20 12:53 Freq: NEEDED Status: Active Protocol: Document 10/20/20 14:30 AW (Rec: 10/20/20 15:37 AW [id number]) PT Summary Assessment and Plan Potential Rehabilitation Potential Excellent Status of Condition at Evaluation Unstable Summary Impairments Pain,ROM,Strength,Balance, Transfers,Gait Assessment Summary Emanuel is a 75 yo man seen for PT evaluation on POD0 following R TKA. He has history of L TKA in 2019. He is independent in all regards at baseline. He required min assist with sit to stand, transfers, and ambulation using FWW on evaluation and was limited by lightheadedness and nausea. PT anticipates this pt will be safe to discharge home with assist and outpatient PT once medically cleared. He must increase his ambulation distance and clear stairs prior to discharge. Goals Bed Mobility Goal Independent Transfer Goal Independent Gait Goal Standby Assistance Gait Distance 150 Other Goals - up/down 2 steps with unilateral rail SBA Days to Meet Goals 2 Frequency of Treatment Frequency Of Treatment Twice a Day Treatment Plan Physical Therapy Treatment Plan Bed Mobility Training,Transfer Training,Gait Training, Therapeutic Exercise,Balance Retraining,Post Op Education, Discharge Planning,Hot or Cold Pack,Neuromuscular Re-ed Recommendations To Nursing Amount of Assist Needed 1 Person Assist Discharge Recommendations PT Discharge Recommendations Home with Assistance, Outpatient PT Transportation Needs at Discharge Private Vehicle
[2020-10-20] MEDS: DOCUSATE 100 MG CAPSULE PO (20:35)
--- NOTE | 2020-10-20 22:19 | PC.NURSE ---
PATIENT HAS NO NEED TO URINATE,BLADDER SCAN SHOWS MINIMAL URINE,ENCOURAGED TO DRINK,IV FLUIDS CONTINUE
[2020-10-20] MEDS: OXYCODONE IR 5 MG TABLET PO (23:15)
[2020-10-21] VITALS (10 sets, daily range): BP systolic 104–152; BP diastolic 52–78; PULSE 80–91; RESP 14–20; TEMP 36.9–37.6; O2SAT 94–96
[2020-10-21] MEDS: OXYCODONE IR 5 MG TABLET PO (03:49)
[2020-10-21] MEDS: ACETAMINOPHEN 325 MG TABLET 650 MG PO ×2 (05:05→19:57)
[2020-10-21 05:06] LABS: Hematocrit 38.1 % (41-53); Hemoglobin 12.7 g/dL (13.5-17.5)
--- NOTE | 2020-10-21 05:49 | PC.NURSE ---
Addendum entered by Mary Castillo R.N. 10/21/20 06:08: 0600- Straight cath for 800cc clear wood urine. Patient advised if he was unable to void adequately next time then the MD will be notified for further orders. Will monitor. Original Note: 0530- Patient straight cathed for 800cc clear wood urine at 0150AM. Patient c/o dribbling only able to produce 100cc after three attempts. Bladder scan shows another 817cc in bladder. Will straight cath again for comfort. Will monitor.
--- NOTE | 2020-10-21 07:35 | P.DS_ITS ---
History of Present Illness History of Present Illness Date Patient Seen: 10/21/20 Time Patient Seen: 07:36 Chief complaint: Right Total Knee Arthroplasty *OPB* Narrative: The history and physical are contained in the chart and previously completed note. Please refer to this note for that information. Discharge Providers Provider Discharge Date: 10/21/20 Primary care physician: Shabbir Sosa DO Consults: 10/20/20 10:30 Consult to Discharge Planning Routine Comment: Consult to Physical Therapy Evaluate & Treat Comment: Physician Instructions: postop TKA protocol Discharge provider: David Mistry MD Summary Hospital Course Discharge Diagnosis: 1. Right knee osteoarthritis 2. Postoperative urinary retention 3. Post hemorrhagic anemia Hospital Course: Patient was admitted to the hospital and taken directly to the operating room on October 20, 2020. He underwent a right total knee replacement without complications. On the afternoon of the day of surgery he had significant nausea so he was maintained in the hospital overnight prior to discharge. He did have urinary retention requiring straight catheterization. At the time of this dictation he he will receive Flomax and we will check attempt another voiding trial. He will either be discharged on Flomax or he will be given a Molina catheter and a leg bag with outpatient neurology follow- up. Discharge is planned for later today. Status at Discharge Cognitive/behavioral status at discharge: oriented Functional status at discharge: uses cane/walker Overall status at discharge: patient is progressing back to baseline Time Spent with Patient Time spent: Less than 30 minutes Exam Vital Signs (past 8 hours): - 10/21/20 00:00 10/21/20 03:58 10/21/20 05:00 Temperature 99.1 F 98.4 F 99.6 F Pulse Rate 91 H 89 Respiratory Rate 16 16 Blood Pressure 148/67 H 142/75 H Pulse Oximetry 95 94 10/21/20 05:05 10/21/20 05:42 Temperature 99.6 F 99.3 F Pulse Rate Respiratory Rate Blood Pressure Pulse Oximetry Oxygen Delivery Method Room Air Oxygen Flow Rate 0 Narrative Exam Narrative: Right knee wound is dressed with no drainage on the bandage and mild swelling. Calf is soft and nontender. Light touch and motion are intact in the right lower extremity. Objective Labs Result Diagrams: 10/21/20 04:49 Labs: Laboratory Results - last 24 hr 10/21/20 04:49 Hgb 12.7 L Hct 38.1 L PFSH Medical History (Updated 10/17/20 @ 07:33 by Julianne Brush RN) Afib (~2010) Arthritis Atrial flutter (~09/20/20) Easy bruisability History of cardioversion (~09/2020) Neuropathy NIKKO on CPAP Throat cancer (~08/2014) Surgical History (Updated 10/09/20 @ 10:27 by Julianne Brush RN) History of arthroplasty of left knee (11/20/18) History of lumbar spinal fusion History of vasectomy Hx of arthroscopy of right knee Hx of laminectomy (12/02/17) Hx of tonsillectomy Hx of umbilical hernia repair S/P epidural steroid injection Status post cataract extraction of both eyes with insertion of intraocular lens Social History household members: spouse Smoking Status: Former smoker alcohol intake: current Discharge Assessment & Plan Assessment and Plan Assessment: Postoperative day 1 status post right total knee replacement. Postoperative nausea has resolved. He has a mild, asymptomatic post hemorrhagic anemia. He has had urinary retention overnight. Plan of Treatment: Likely discharge today. Prescriptions for oxycodone and Flomax have been sent to his pharmacy. We will attempt a voiding trial this morning. If he is unable to void spontaneously he will be equipped with a leg bag and outpatient urology follow-up will be arranged. Discharge Plan Discharge Plan Patient Disposition: Home Discharge orders & Medications Discharge Orders: Discharge (Order); Ordered 10/21/20 Ordered By: David Mistry Prescriptions: New acetaminophen 325 mg Tablet 650 mg PO TID 30 Days Qty: 180 RF: 0 tamsulosin [Flomax] 0.4 mg Capsule 0.4 mg PO DAILY Qty: 30 RF: 0 oxycodone 5 mg Tablet 5 mg PO Q4H PRN (Reason: Pain, Moderate (4-6)) Qty: 40 RF: 0 Continued Xarelto 20 mg Tablet 20 mg PO DAILY RF: 0 Discontinued ibuprofen 600 mg Tablet 600 mg PO Q6HR PRN (Reason: As Needed For Fever/Mild Pain) Qty: 60 RF: 0 Follow up/Referrals: Shabbir Sosa DO [Primary Care Provider] - David Mistry MD [Physician] - 2 Weeks Diet/Activity/Treatments Diet: Diet as Tolerated and Regular Activity: You may bear weight as tolerated on your right leg. Cold/Heat Therapy: Apply ice for 15 minutes every hour as needed to the right knee for pain control. Skin/Wound/Dressing Care Report to your healthcare provider any signs of infection, such as:: chills, fever, night sweats, increased pain, unusual drainage and unusual redness Dressing: You may remove the David wrap 3 days after surgery and shower normally with the deeper dressing in place. Leave the deeper dressing in place until postoperative follow-up. If the central strip of the deeper dressing becomes saturated with either water or blood, please call the office to have it evaluated. Visit Report/Discharge Packet Instructions: DI for Knee Replacement Stand Alone Forms: Surgery Discharge Discharge Data Primary Care Provider: Shabbir Sosa Attending Provider: David Mistry
[2020-10-21] MEDS: ONDANSETRON 4 MG ODT PO ×2 (07:49→14:05)
[2020-10-21] MEDS: OXYCODONE IR 10 MG TABLET PO ×3 (08:18→19:57)
[2020-10-21] MEDS: DOCUSATE 100 MG CAPSULE PO ×2 (08:18→19:57)
[2020-10-21] MEDS: TAMSULOSIN 0.4 MG CAPSULE PO (08:18)
[2020-10-21] MEDS: RIVAROXABAN 10 MG TABLET 20 MG PO (08:19)
--- NOTE | 2020-10-21 09:32 | PT.IPTN ---
Current Diagnoses Unilateral primary osteoarthritis, right knee (10/20/20) Surgery Performed Operation Date: 10/20/20 07:45 Actual Procedures p Total Knee Arthroplasty(Right) - David Mistry MD Physical Therapy Treatment Note M2 PT-IP Current Condition Start: 10/20/20 12:53 Freq: NEEDED Status: Active Protocol: Document 10/21/20 09:55 MA (Rec: 10/21/20 10:06 MA [id number]) Physical Therapy Current Condition Current Condition Evaluation Date 10/20/20 Treatment Diagnosis R TKA; difficulty in walking Onset Date 10/20/20 Weight Bearing Status Weight Bearing Status Weight Bear as Tolerated M3 PT-IP Subjective Start: 10/20/20 12:53 Freq: NEEDED Status: Active Protocol: Document 10/21/20 09:55 MA (Rec: 10/21/20 10:06 MA [id number]) Subjective Physical Therapy Visit Type Type Treatment Note Visit Start Time 09:10 Visit Stop Time 09:32 Total Visit Minutes 22 Number of CLOTH FOLDER MACHINE Visits 1 Physical Therapy Visit Comments Patient Comments Pt is willing to participate with PT. He has not been able to void recently but would like to try. Patient Goals Return home and to normal activities. Therapy Pain Assessment Pain When Pain Assessed During Mobility Pain Present Pain Present Pain Reported Location right knee Intensity 8 Scale Used Numeric (0 - 10) Pain Management Techniques Apply Cold,Timing of Activity with Medications M4 PT-IP Mobility and Gait Start: 10/20/20 12:53 Freq: NEEDED Status: Active Protocol: Document 10/21/20 09:55 MA (Rec: 10/21/20 10:06 MA [id number]) PT-Bed Mobility Assessment Supine to Sit Supine to Sit Standby Assistance,1 Person Assistance Scooting Scooting to Edge of Bed Contact Guard Assistance PT-Transfer Assessment Sit to and From Stand Sit to and from Stand Contact Guard Assistance,1 Person Assistance,Use of Upper Extremities Equipment Transfer Assistive Device Gait Belt,Front Wheeled Walker Orthotic/Prosthetic Devices or Brace: No Comments Mobility Comments Pt was SBA today for bed mobility and CGA for sit<> stand. While seated EOB, BP 120/63 with no lightheadedness . Pt ambulated 10 feet CGA with FWW to bathroom where he had fair balance while trying to void, which was unsuccessful. Pt began to feel lightheaded and ambulated back to bed where BP was taken 73/44. Pt was returned to supine and nurse notified of BP. Gait Assessment Gait Gait Assistance Required: Contact Guard Assist,1 Person Assist Distance (Feet) 10 Able to Maintain Weight Bearing Status Yes During Gait Assistive Devices Assistive Device Gait Belt,Front Wheeled Walker Orthotic/Prosthetic Devices or Brace: No Gait Deviations General Gait Pattern Antalgic,Decreased Stride Length,Decreased Feet Clearance,Flexed Trunk,Step-to Gait Factors Limiting Gait Function Factors Limiting Gait Function Decreased Activity Tolerance, Decreased Strength,Limited Range of Motion,Pain,Poor Balance Comments Gait Comments Pt used his own FWW for gait which was limited due to lightheadedness. Stair Climbing Assessment Comments Stair Climbing Comments Not assessed due to pt condition. PT-Balance Assessment Sitting Balance and Reactions Static Sitting Balance Ability Good Dynamic Sitting Balance Ability Good Standing Balance and Reactions Static Standing Balance Ability Good Dynamic Standing Balance Ability Fair Device Used FWW M5 PT-IP Objective Assessments Start: 10/20/20 12:53 Freq: NEEDED Status: Active Protocol: Document 10/20/20 14:30 AW (Rec: 10/20/20 15:37 AW [id number]) Orientation Orientation/Cognition Level of Alertness Alert Orientation Name,Day of Week,Place, Situation Language Function Ability No Deficits Noted Safety Awareness Understands Safety Issues Memory Description No Deficits Noted Gross Range of Motion Lower Extremity ROM Assessment Right Impaired Impairments 15-90 degrees right knee AROM Strength Lower Extremity Strength Assessment Right Impaired Coordination Assessment Gross Coordination Gross Coordination WNL Sensation Assessment Sensation Gross Sensation WNL Muscle Tone Muscle Tone WNL Yes M6 PT-IP Treatment Start: 10/20/20 12:53 Freq: NEEDED Status: Active Protocol: Document 10/21/20 10:06 MA (Rec: 10/21/20 10:06 MA [id number]) Physical Therapy Treatment Exercises Exercises Ankle Pumps,Quad Sets,Heel Slides,Passive Knee Extension Hang Education Education Provided Precautions,Weight Bearing Status M7 PT-IP Assessment and Plan Start: 10/20/20 12:53 Freq: NEEDED Status: Active Protocol: Document 10/21/20 09:55 MA (Rec: 10/21/20 10:06 MA [id number]) PT Summary Assessment and Plan Potential Rehabilitation Potential Excellent Status of Condition at Evaluation Unstable Summary Impairments Pain,ROM,Strength,Balance, Transfers,Gait Assessment Summary Bill continues to have lightheadedness when out of bed. His BP dropped significantly today with nurse notified of condition. Reviewed ankle pumps, quad sets and heel slides once back in bed. Placed ice packs around R knee and left pt with nurse in room, all needs within reach. Goals Bed Mobility Goal Independent Transfer Goal Independent Gait Goal Standby Assistance Gait Distance 150 Other Goals - up/down 2 steps with unilateral rail SBA Days to Meet Goals 2 Frequency of Treatment Frequency Of Treatment Twice a Day Treatment Plan Physical Therapy Treatment Plan Bed Mobility Training,Transfer Training,Gait Training, Therapeutic Exercise,Balance Retraining,Post Op Education, Discharge Planning,Hot or Cold Pack,Neuromuscular Re-ed Other Recommendations and Next Treatment Increase distance ambulated Focus and stair training-2 steps Recommendations To Nursing Amount of Assist Needed Standby Assistance Discharge Recommendations PT Discharge Recommendations Home with Assistance, Outpatient PT Transportation Needs at Discharge Private Vehicle
--- NOTE | 2020-10-21 10:43 | CM.DANOTE ---
DCP: Case received, EMR reviewed and met with patient. Introduced self and role. Was able to obtain information regarding patient's baseline activity status prior to his having surgery. DCP assessment completed with information currently available. Patient is a 75 year old male who admitted yesterday morning to the care of the orthopedic team. PCP: Dr. Sosa. Payer: confirmed: Medicare/[employer]. Patient came to the hospital for a surgical procedure. He had right total knee arthroplasty. He has history of osteoarthritis. Met with patient in his room. He is alert and oriented, he was sitting up in bed. Patient resides on [address] with his spouse, Charmaine. He ambulates independently. He also mentioned that he has been going to outpatient P.T. in [place]. P: Patient has discharge orders for home today. He will work with P.T. before discharge. Rebecca Dyer RN/Curtain Mender
--- NOTE | 2020-10-21 13:28 | PT.IPTN ---
Current Diagnoses Unilateral primary osteoarthritis, right knee (10/20/20) Surgery Performed Operation Date: 10/20/20 07:45 Actual Procedures p Total Knee Arthroplasty(Right) - David Mistry MD Physical Therapy Treatment Note M2 PT-IP Current Condition Start: 10/20/20 12:53 Freq: NEEDED Status: Active Protocol: Document 10/21/20 13:30 MA (Rec: 10/21/20 13:52 MA [id number]) Physical Therapy Current Condition Current Condition Evaluation Date 10/20/20 Treatment Diagnosis R TKA; difficulty in walking Onset Date 10/20/20 Weight Bearing Status Weight Bearing Status Weight Bear as Tolerated M3 PT-IP Subjective Start: 10/20/20 12:53 Freq: NEEDED Status: Active Protocol: Document 10/21/20 13:30 MA (Rec: 10/21/20 13:52 MA [id number]) Subjective Physical Therapy Visit Type Type Treatment Note Visit Start Time 13:04 Visit Stop Time 13:28 Total Visit Minutes 24 Number of VE TEACHER Visits 2 Physical Therapy Visit Comments Patient Comments Pt is willing to work with PT. Nurse would like pt to try voiding again Patient Goals Return home and to normal activities. Therapy Pain Assessment Pain When Pain Assessed During Mobility Pain Present Pain Present Pain Reported Location right knee Intensity 8 Scale Used Numeric (0 - 10) Pain Management Techniques Apply Cold,Timing of Activity with Medications M4 PT-IP Mobility and Gait Start: 10/20/20 12:53 Freq: NEEDED Status: Active Protocol: Document 10/21/20 13:30 MA (Rec: 10/21/20 13:52 MA [id number]) PT-Bed Mobility Assessment Supine to Sit Supine to Sit Minimal Assistance,1 Person Assistance,Head of Bed Elevated Scooting Scooting to Edge of Bed Contact Guard Assistance PT-Transfer Assessment Sit to and From Stand Sit to and from Stand Minimal Assistance,1 Person Assistance,Use of Upper Extremities Equipment Transfer Assistive Device Gait Belt,Front Wheeled Walker Orthotic/Prosthetic Devices or Brace: No Transfers Transfer Destination Chair Transfer Technique Stand Step Pivot Transfer Ability Level of Assist Minimal Assistance,1 Person Assistance,Use of Upper Extremities Comments Mobility Comments Pt was supine in bed upon arrival. Pt needed Min A for assistance with RLE. VE TEACHER showed pt how to use belt to assist with LE and manually assisted under RLE during transfer. Pt was CGA for scooting to the EOB. BP taken once seated EOB- 122/64. Pt ambulated 10 feet to bathroom where he was able to void with fair standing balance holding grab bar and walker for stability. Pt was able to ambulate to door with FWW CGA and back to room chair 15 feet before feeling lightheaded. BP taken seated in chair 79/44 ; nurse notified. Pt's LE elevated. Gait Assessment Gait Gait Assistance Required: Contact Guard Assist,1 Person Assist Distance (Feet) 25 Able to Maintain Weight Bearing Status Yes During Gait Assistive Devices Assistive Device Gait Belt,Front Wheeled Walker Orthotic/Prosthetic Devices or Brace: No Gait Deviations General Gait Pattern Antalgic,Decreased Stride Length,Decreased Feet Clearance,Flexed Trunk,Step-to Gait Factors Limiting Gait Function Factors Limiting Gait Function Decreased Activity Tolerance, Decreased Strength,Limited Range of Motion,Pain,Poor Balance Comments Gait Comments Pt ambulated 10 feet to bathroom, then 15 feet to door and back to chair CGA with FWW. Gait limited due to nausea Stair Climbing Assessment Comments Stair Climbing Comments Not assessed due to pt condition. PT-Balance Assessment Sitting Balance and Reactions Static Sitting Balance Ability Good Dynamic Sitting Balance Ability Good Standing Balance and Reactions Static Standing Balance Ability Fair Dynamic Standing Balance Ability Fair Device Used FWW M5 PT-IP Objective Assessments Start: 10/20/20 12:53 Freq: NEEDED Status: Active Protocol: Document 10/20/20 14:30 AW (Rec: 10/20/20 15:37 AW [id number]) Orientation Orientation/Cognition Level of Alertness Alert Orientation Name,Day of Week,Place, Situation Language Function Ability No Deficits Noted Safety Awareness Understands Safety Issues Memory Description No Deficits Noted Gross Range of Motion Lower Extremity ROM Assessment Right Impaired Impairments 15-90 degrees right knee AROM Strength Lower Extremity Strength Assessment Right Impaired Coordination Assessment Gross Coordination Gross Coordination WNL Sensation Assessment Sensation Gross Sensation WNL Muscle Tone Muscle Tone WNL Yes M6 PT-IP Treatment Start: 10/20/20 12:53 Freq: NEEDED Status: Active Protocol: Document 10/21/20 13:30 MA (Rec: 10/21/20 13:52 MA [id number]) Physical Therapy Treatment Education Education Provided Safety Other Treatments Other Treatment Performed VE TEACHER and nurse educated pt on how he is unsafe for d/c at this time due to drop in BP, limited ability to void, limited distance ambulated and still needing to complete stair training M7 PT-IP Assessment and Plan Start: 10/20/20 12:53 Freq: NEEDED Status: Active Protocol: Document 10/21/20 13:30 MA (Rec: 10/21/20 13:52 MA [id number]) PT Summary Assessment and Plan Potential Rehabilitation Potential Excellent Status of Condition at Evaluation Unstable Summary Impairments Pain,ROM,Strength,Balance, Transfers,Gait Assessment Summary Emanuel's progress is limited due to continued nausea and lightheadedness. He was able to ambulate ~10 feet further this afternoon before needing to rest due to nausea. During bed mobility, pt needed more assistance this afternoon. Educated pt on how to use belt to assist RLE transferring from supine to seated EOB. Nurse was in and out of room throughout treatment session to monitor pt status and BP. Pt left in room chair, LEs elevated and all needs within reach. Pt is unsafe to d/c home at this time. Goals Bed Mobility Goal Independent Transfer Goal Independent Gait Goal Standby Assistance Gait Distance 150 Other Goals - up/down 2 steps with unilateral rail SBA Days to Meet Goals 2 Frequency of Treatment Frequency Of Treatment Twice a Day Treatment Plan Physical Therapy Treatment Plan Bed Mobility Training,Transfer Training,Gait Training, Therapeutic Exercise,Balance Retraining,Post Op Education, Discharge Planning,Hot or Cold Pack,Neuromuscular Re-ed Other Recommendations and Next Treatment Monitor vitals throughout Focus session, increase distance ambulated and complete stair training (2 steps). Recommendations To Nursing Amount of Assist Needed 1 Person Assist Discharge Recommendations PT Discharge Recommendations Home with Assistance, Outpatient PT Transportation Needs at Discharge Private Vehicle
[2020-10-22 00:19] VITALS: BP 138/71; PULSE 84; RESP 16; TEMP 37.2; O2SAT 94
[2020-10-22] MEDS: OXYCODONE IR 10 MG TABLET PO ×2 (03:53→10:34)
[2020-10-22] MEDS: ONDANSETRON 4 MG ODT PO (03:55)
[2020-10-22 04:59] VITALS: BP 142/70; PULSE 86; RESP 16; TEMP 36.6; O2SAT 92
[2020-10-22 07:51] VITALS: BP 136/72; PULSE 95; RESP 16; TEMP 37.4; O2SAT 93
--- NOTE | 2020-10-22 08:03 | P.DS_ITS ---
History of Present Illness History of Present Illness Date Patient Seen: 10/22/20 Time Patient Seen: 08:03 Chief complaint: Right Total Knee Arthroplasty *OPB* Narrative: The history and physical are contained in the chart and previously completed note. Please refer to this note for that information. Discharge Providers Provider Date of admission: 10/21/20 14:26 Discharge Date: 10/22/20 Primary care physician: Shabbir Sosa DO Consults: 10/20/20 10:30 Consult to Discharge Planning Routine Comment: Consult to Physical Therapy Evaluate & Treat Comment: Physician Instructions: postop TKA protocol Discharge provider: David Mistry MD Summary Hospital Course Discharge Diagnosis: 1. Right knee osteoarthritis 2. Postoperative urinary retention 3. Post hemorrhagic anemia Hospital Course: The patient was admitted to the hospital and taken directly to the operating room on October 20 2020. He underwent a right total knee replacement without difficulty. On the day of surgery he had significant nausea. His 1st postoperative day was marked by urinary retention. He was started on Flomax and spontaneously was able to void. Later in the afternoon on postoperative day 1 he suffered mild lightheadedness with ambulation and it was felt that it would be best for him to have an additional day in the hospital kellee or to going home. At the time of this dictation on postoperative day 2 he is stable and it is plan for discharge. Status at Discharge Cognitive/behavioral status at discharge: oriented Functional status at discharge: uses cane/walker Overall status at discharge: patient is progressing back to baseline Time Spent with Patient Time spent: Less than 30 minutes Exam Vital Signs (past 8 hours): - 10/22/20 00:19 10/22/20 04:59 10/22/20 07:51 Temperature 98.9 F 97.8 F 99.3 F Pulse Rate 84 86 95 H Respiratory Rate 16 16 16 Blood Pressure 138/71 142/70 H 136/72 Pulse Oximetry 94 92 93 Oxygen Delivery Method Room Air Oxygen Flow Rate 0 Narrative Exam Narrative: Right knee wound is dressed with no drainage on the bandage. Calf is swollen but soft and without cords. Light touch and motion are intact right lower extremity. Objective Labs Result Diagrams: 10/21/20 04:49 [facility] Medical History (Updated 10/17/20 @ 07:33 by Julianne Brush RN) Afib (~2010) Arthritis Atrial flutter (~09/20/20) Easy bruisability History of cardioversion (~09/2020) Neuropathy NIKKO on CPAP Throat cancer (~08/2014) Surgical History (Updated 10/09/20 @ 10:27 by Julianne Brush RN) History of arthroplasty of left knee (11/20/18) History of lumbar spinal fusion History of vasectomy Hx of arthroscopy of right knee Hx of laminectomy (12/02/17) Hx of tonsillectomy Hx of umbilical hernia repair S/P epidural steroid injection Status post cataract extraction of both eyes with insertion of intraocular lens Social History household members: spouse Smoking Status: Former smoker alcohol intake: current Discharge Assessment & Plan Assessment and Plan Assessment: Postoperative day 2 status post right total knee replacement. Postoperative nausea has resolved. Postoperative urinary retention has resolved. He has a mild post hemorrhagic anemia. He had some lightheadedness with ambulation yesterday but does not appear to have that problem today.. Plan of Treatment: Likely discharge today. Prescriptions for oxycodone and Flomax have been sent to his pharmacy. He will ambulate with therapy this morning and likely be discharged later in the day. If he continues to have lightheadedness a repeat hemoglobin and hematocrit will be ordered and likely a medical consult obtained. Discharge follow-up will be in my office in 2 weeks. He has been restarted on his Xarelto and this will function as his DVT prophylaxis. Discharge Plan Discharge orders & Medications Discharge Orders: Discharge (Order); Ordered 10/22/20 Ordered By: David Mistry Prescriptions: New acetaminophen 325 mg Tablet 650 mg PO TID 30 Days Qty: 180 RF: 0 tamsulosin [Flomax] 0.4 mg Capsule 0.4 mg PO DAILY Qty: 30 RF: 0 oxycodone 5 mg Tablet 5 mg PO Q4H PRN (Reason: Pain, Moderate (4-6)) Qty: 40 RF: 0 Continued Xarelto 20 mg Tablet 20 mg PO DAILY RF: 0 Discontinued ibuprofen 600 mg Tablet 600 mg PO Q6HR PRN (Reason: As Needed For Fever/Mild Pain) Qty: 60 RF: 0 Follow up/Referrals: Shabbir Sosa DO [Primary Care Provider] - David Mistry MD [Physician] - 2 Weeks Diet/Activity/Treatments Diet: Diet as Tolerated and Regular Activity: You may bear weight as tolerated on your right leg. Cold/Heat Therapy: Apply ice for 15 minutes every hour as needed to the right knee for pain control. Skin/Wound/Dressing Care Report to your healthcare provider any signs of infection, such as:: chills, fever, night sweats, increased pain, unusual drainage and unusual redness Dressing: You may remove the David wrap 3 days after surgery and shower normally with the deeper dressing in place. Leave the deeper dressing in place until postoperative follow-up. If the central strip of the deeper dressing becomes saturated with either water or blood, please call the office to have it evaluated. Visit Report/Discharge Packet Instructions: How to Care for Your Molina Catheter -- Male, DI for Knee Replac ement, How to Prevent Falls, Stool Softeners, Oxycodone, Tamsulosin Stand Alone Forms: Surgery Discharge Discharge Data Primary Care Provider: Shabbir Sosa Attending Provider: David Mistyr
[2020-10-22] MEDS: TAMSULOSIN 0.4 MG CAPSULE PO (08:14)
[2020-10-22] MEDS: DOCUSATE 100 MG CAPSULE PO (08:14)
[2020-10-22] MEDS: RIVAROXABAN 10 MG TABLET 20 MG PO (08:14)
[2020-10-22] MEDS: ACETAMINOPHEN 325 MG TABLET 650 MG PO (08:16)
--- NOTE | 2020-10-22 10:32 | PT.IPTN ---
Current Diagnoses Unilateral primary osteoarthritis, right knee (10/21/20) Surgery Performed Operation Date: 10/20/20 07:45 Actual Procedures p Total Knee Arthroplasty(Right) - David Mistry MD Physical Therapy Treatment Note M2 PT-IP Current Condition Start: 10/20/20 12:53 Freq: NEEDED Status: Active Protocol: Document 10/21/20 13:30 MA (Rec: 10/21/20 13:52 MA [id number]) Physical Therapy Current Condition Current Condition Evaluation Date 10/20/20 Treatment Diagnosis R TKA; difficulty in walking Onset Date 10/20/20 Weight Bearing Status Weight Bearing Status Weight Bear as Tolerated M3 PT-IP Subjective Start: 10/20/20 12:53 Freq: NEEDED Status: Active Protocol: Document 10/22/20 09:58 SP (Rec: 10/22/20 12:49 SP [id number]) Subjective Physical Therapy Visit Type Type Treatment Note Visit Start Time 09:58 Visit Stop Time 10:32 Total Visit Minutes 34 Notes JACQUES Pierre attended tx and assisted with w/c follow if required. Vitals taken: supine BP 152, 79 Hr 91 91% on RA, seated 150 /85 Hr 99, stand 139/64 Hr 105 pre mobility. Number of LEAD BURNER HELPER Visits 3 Physical Therapy Visit Comments Patient Comments pt willing to work with therapy. Patient Goals Return home and to normal activities. Therapy Pain Assessment Pain When Pain Assessed During Mobility Pain Present Pain Present Pain Reported Location right knee Intensity 6 Scale Used Numeric (0 - 10) Description With Movement Pain Behaviors Facial Grimacing Pain Management Techniques Apply Cold,Distraction,Re- positioning,Timing of Activity with Medications M4 PT-IP Mobility and Gait Start: 10/20/20 12:53 Freq: NEEDED Status: Active Protocol: Document 10/22/20 09:58 SP (Rec: 10/22/20 12:49 SP [id number]) PT-Bed Mobility Assessment Supine to Sit Supine to Sit Standby Assistance Sit to Supine Sit to Supine Minimal Assistance Scooting Scooting to Edge of Bed Standby Assistance PT-Transfer Assessment Sit to and From Stand Sit to and from Stand Contact Guard Assistance,1 Person Assistance,Use of Upper Extremities Equipment Transfer Assistive Device Gait Belt,Front Wheeled Walker Orthotic/Prosthetic Devices or Brace: No Transfers Transfer Destination Chair Transfer Technique Stand Step Pivot Transfer Ability Level of Assist Contact Guard Assistance,1 Person Assistance,Use of Upper Extremities Comments Mobility Comments Sup> sit and scoot to EOB sBA, sit>stand CGA using FWW with cuing for UE pushing from bed with no carryovery pushed down pressure on FWW. Ambulated into hallway approx 50 ft before requested to sit down due to tiring and 6/10 pain. stand> sit in w/c CGA with good hand placement. Pt wheeled to stairs. Sit>stand CGA using fWW to stairs, ascend/descend 3 stairs using L HR and SPC on with support for steadying SPC step to patterning CGA- 10 % A. Pt ambulated further distance approx 50 ft using fWW w/c follow and requested seated rest. Pt was wheeled back to room. Pt ambulated to bed, sit >supine 10 % A for RLE in bed while instructing using gait belt for self support. Reviewed post op exercises: quad and glut sets, Heel slide AAROM using gait belt and Max A approx 30 deg, full support for SAQ. LEAD BURNER HELPER noted NICA bandaging sliding down thigh to knee and imprinted into quad, rewrapped NICA bandaging to have proper support, discussed with SERVICE DELIVERY MANAGER and nurse to continue to assess proper fit, SERVICE DELIVERY MANAGER provided CP for assist with pain. Pt had call light and all needs in reach before left. Gait Assessment Gait Gait Assistance Required: Contact Guard Assist,1 Person Assist Distance (Feet) 50 Able to Maintain Weight Bearing Status Yes During Gait Assistive Devices Assistive Device Gait Belt,Front Wheeled Walker Orthotic/Prosthetic Devices or Brace: No Gait Deviations General Gait Pattern Antalgic,Decreased Stride Length,Decreased Feet Clearance,Flexed Trunk Factors Limiting Gait Function Factors Limiting Gait Function Decreased Activity Tolerance, Decreased Strength,Limited Range of Motion,Pain,Poor Balance,Poor Safety Awareness Comments Gait Comments Pt required CG- Min A for RLE support into bed, CGA transfers and gait using FWW, stair mgt CGA L HR and SPC on R. Pt is ok to return home with family to assist him when medically cleared. Pt has outpt therapy set up already. Stair Climbing Assessment Evaluation Level of Assist On Stairs Contact Guard Assistance Devices Stair Climbing Assistive Devices Straight Cane,Left Railing Technique/Endurance Stair Climbing Direction Ascend and Descend Stair Climbing Technique Step to Step Number of Steps Climbed 3 Stair Climbing Set # Repetitions (reps) 1 Comments Stair Climbing Comments step to, 3 stairs L HR RUE SPC CGA. PT-Balance Assessment Sitting Balance and Reactions Static Sitting Balance Ability Good Dynamic Sitting Balance Ability Good Standing Balance and Reactions Static Standing Balance Ability Fair Dynamic Standing Balance Ability Fair Device Used FWW M5 PT-IP Objective Assessments Start: 10/20/20 12:53 Freq: NEEDED Status: Active Protocol: Document 10/20/20 14:30 AW (Rec: 10/20/20 15:37 AW [id number]) Orientation Orientation/Cognition Level of Alertness Alert Orientation Name,Day of Week,Place, Situation Language Function Ability No Deficits Noted Safety Awareness Understands Safety Issues Memory Description No Deficits Noted Gross Range of Motion Lower Extremity ROM Assessment Right Impaired Impairments 15-90 degrees right knee AROM Strength Lower Extremity Strength Assessment Right Impaired Coordination Assessment Gross Coordination Gross Coordination WNL Sensation Assessment Sensation Gross Sensation WNL Muscle Tone Muscle Tone WNL Yes M6 PT-IP Treatment Start: 10/20/20 12:53 Freq: NEEDED Status: Active Protocol: Document 10/22/20 09:58 SP (Rec: 10/22/20 12:49 SP [id number]) Physical Therapy Treatment Exercises Exercises Ankle Pumps,Gluteal Sets,Quad Sets,Heel Slides,Supine Hip Abduction,Short Arc Quads Education Education Provided Weight Bearing Status,Post-Op Packet,Safety M7 PT-IP Assessment and Plan Start: 10/20/20 12:53 Freq: NEEDED Status: Active Protocol: Document 10/22/20 09:58 SP (Rec: 10/22/20 12:49 SP [id number]) PT Summary Assessment and Plan Potential Rehabilitation Potential Excellent Status of Condition at Evaluation Stable Summary Impairments Pain,ROM,Strength,Balance, Transfers,Gait Progress Towards Goals Progressing Toward Goals,Slow Progress due to Pain,Slow Progress due to Activity Tolerance Assessment Summary Emanuel's progress is limited due to continued nausea and lightheadedness. He was able to ambulate ~10 feet further this afternoon before needing to rest due to nausea. During bed mobility, pt needed more assistance this afternoon. Educated pt on how to use belt to assist RLE transferring from supine to seated EOB. Nurse was in and out of room throughout treatment session to monitor pt status and BP. Pt left in room chair, LEs elevated and all needs within reach. Pt is unsafe to d/c home at this time. Goals Bed Mobility Goal Independent Transfer Goal Independent Gait Goal Standby Assistance Gait Distance 150 Other Goals - up/down 2 steps with unilateral rail SBA Days to Meet Goals 2 Frequency of Treatment Frequency Of Treatment Twice a Day Treatment Plan Physical Therapy Treatment Plan Bed Mobility Training,Transfer Training,Gait Training, Therapeutic Exercise,Balance Retraining,Post Op Education, Discharge Planning,Hot or Cold Pack,Neuromuscular Re-ed Other Recommendations and Next Treatment increase distance ambulated w/ Focus fWW, ther ex Recommendations To Nursing Amount of Assist Needed 1 Person Assist Discharge Recommendations PT Discharge Recommendations Home with Assistance, Outpatient PT Transportation Needs at Discharge Private Vehicle
--- NOTE | 2020-10-22 11:29 | PC.NURSE ---
Patients r.knee and leg are swollen. He has an aquacel dressing with nadia wrap that has been loosened. Given 10mg of oxycodone and this has been helpful for patients discomfort. He is up with fww and 1 pa. Patient has already worked with physical therapy and is going to be discharged around 1300.
[2020-10-22 12:00] VITALS: BP 147/75; PULSE 83; RESP 17; TEMP 37.1; O2SAT 93
--- NOTE | 2020-10-22 15:29 | CM.DPC ---
DCP Discharge Home Per Ortho, pt is medically stable for d/c home today and no identified barriers to discharge. Per PT, recommending safe d/c home and plan is to complete stairs with pt today prior to discharge. SW met briefly bedside and pt confirms he is agreeable with plan of home later this morning. Plan: Patient to d/c home via family POV today after completing stairs with PT and outpt follow up. No SW needs at this time. NEAL Maharaj
== END 2020-10-22 13:00 | disposition home or self-care (01) ==
LOC: OR 14:31 → AC 14:31
PROVIDERS: Admitting Provider Orthopaedic Surgery; PCP Family Medicine; Referring Provider Family Medicine; Visit Provider Orthopaedic Surgery
PROC: 0SRC0JZ Replacement of Right Knee Joint with Synthetic Substitute, Open Approach (ICD-10-PCS; CPT 27447; principal; 2020-10-20 07:45)
DX: M17.11 Unilateral primary osteoarthritis, right knee (principal); I10 Essential (primary) hypertension; G47.33 Obstructive sleep apnea (adult) (pediatric); D50.0 Iron deficiency anemia secondary to blood loss (chronic); R33.8 Other retention of urine
CPT/HCPCS: 27447; 73560; 85014; 85018; 97116; 97161; 97530; C1776; G0378; C9290; J0690; J1100; J2250; J2270; J2274; J2405; J2704